=== PATIENT | male | born 1950 | race Caucasian/White ===

== ENCOUNTER 2019-05-06 11:45 | Outpatient (CLI) | payer OTHER ==
[2019-05-06] MEDS ORDERED: LEVE100S PO (12:36)
[2019-05-06] MEDS ORDERED: LANS15CA5 PO (12:36)
[2019-05-06] MEDS ORDERED: LISI-167 PO (12:36)
[2019-05-06] MEDS ORDERED: SIMV40TA3 PO (12:36)
[2019-05-06 13:11] LABS: CULTURE INDICATED? YES; MICROSCOPIC INDICATED
[2019-05-06 13:11] LABS: BASOPHILS # (AUTO) 0.05 x10^3/uL (0-0.1); BASOPHILS % (AUTO) 1 % (0-1); EOSINOPHILS # (AUTO) 0.06 x10^3/uL (0-0.4); EOSINOPHILS % (AUTO) 1 % (1-7); LYMPHOCYTES # (AUTO) 1.46 x10^3/uL (1-3.4); LYMPHOCYTES % (AUTO) 19 % (22-44); MD NO; MEAN CORPUSCULAR HEMOGLOBIN 30.6 pg (27.5-34.5); MEAN CORPUSCULAR HGB CONC 32.3 g/dL (33.2-36.2); MEAN CORPUSCULAR VOLUME 94.7 fL (81-97); MEAN PLATELET VOLUME 7.8 fL (7.4-10.4); MONOCYTES # (AUTO) 0.75 x10^3/uL (0.2-0.8); MONOCYTES % (AUTO) 10 % (2-9); NEUTROPHILS # (AUTO) 5.59 x10^3/uL (1.8-6.8); NEUTROPHILS % (AUTO) 71 % (42-75); PLATELET COUNT 245 x10^3/uL (130-400); RED BLOOD COUNT 5.45 x10^6/uL (4.38-5.82); RED CELL DISTRIBUTION WIDTH 15.2 % (9.4-14.8)
[2019-05-06 13:16] LABS: INTERNATIONAL NORMALIZED RATIO 1.03 (0.93-1.1); PROTHROMBIN TIME 10.8 Seconds (9.6-11.5)
[2019-05-06 13:17] LABS: ALBUMIN 4.1 g/dL (3.4-5.0); ANION GAP 5 mmol/L (5-15); CALCIUM 9.2 mg/dL (8.5-10.1); CHLORIDE 106 mmol/L (98-107)
[2019-05-06 13:20] LABS: ALANINE AMINOTRANSFERASE 23 U/L (12-78); ALKALINE PHOSPHATASE 67 U/L (45-117); BILIRUBIN,TOTAL 0.8 mg/dL (0.2-1.0); CREATININE 1.05 mg/dL (0.7-1.3); TOTAL PROTEIN 7.2 g/dL (6.4-8.2)
== END 2019-05-06 23:59 | disposition home or self-care (01) ==
LOC: STAR 11:45
PROVIDERS: ATTEND Neurological Surgery
DX: M48.02 Spinal stenosis, cervical region (principal); R94.31 Abnormal electrocardiogram [ECG] [EKG]
CPT/HCPCS: 36415; 71046; 80053; 81001; 85025; 85610; 85730; 87086; 93005

== ENCOUNTER 2019-05-14 09:23 | Inpatient (IN) | payer OTHER ==
[~2019-05-14] VITALS: Ht 177.8 cm; Wt 71.7 kg
[~2019-05-14 09:23] MED LIST: BACITRACIN 50,000 UNIT ONE; BUPIVACAINE/PF 0.5% ONE; EPINEPHRINE 1 MG/ML, 1ML ONE; LANS15CA5 PO; LEVE100S PO; LISI-167 PO; SIMV40TA3 PO; THROMBIN 5,000 UNIT VIAL TP ONE
[2019-05-14] MEDS ORDERED: LACTATED RINGERS 1,000 ML IV SCH (09:36)
[2019-05-14] MEDS ORDERED: MIDAZOLAM 1 MG/ML, 2ML ONE (10:01)
[2019-05-14] MEDS ORDERED: FENTANYL PF 250 MCG/5ML ONE (10:10)
[2019-05-14] MEDS ORDERED: GLYCOPYRROLATE 0.2MG/1ML, 5ML ONE (10:11)
[2019-05-14] MEDS ORDERED: CEFAZOLIN 1,000 MG ONE (10:11)
[2019-05-14] MEDS ORDERED: DEXAMETHASONE 4 MG/ML, 1ML ONE (10:11)
[2019-05-14] MEDS ORDERED: SUCCINYLCHOLINE 20 MG/ML, 10ML ONE (10:11)
[2019-05-14] MEDS ORDERED: ROCURONIUM 10MG/ML,5ML ONE (10:11)
[2019-05-14] MEDS ORDERED: NEOSTIGMINE 1 MG/ML, 10ML ONE (10:11)
[2019-05-14] MEDS ORDERED: PROPOFOL 10 MG/ML, 20ML ONE (10:11)
[2019-05-14] MEDS ORDERED: ONDANSETRON 2MG/ML, 2ML ONE (10:11)
[2019-05-14] MEDS ORDERED: hydrALAzine 20 MG/ML, 1ML ONE (11:00)
[2019-05-14] MEDS ORDERED: METOPROLOL 1 MG/ML, 5ML ONE (11:00)
[2019-05-14] MEDS ORDERED: DIAZEPAM 5 MG/ML, 2ML ONE (13:10)
[2019-05-14] MEDS ORDERED: OXYcodone 5 MG/5 ML ORAL.SOL UDC ONE (13:10)
[2019-05-14] MEDS ORDERED: FENTANYL PF 100 MCG/2ML ONE (13:10)
[2019-05-14] MEDS ORDERED: ACETAMINOPHEN 650 MG/20.3 ML UDC ONE (13:13)
[2019-05-14] MEDS: FENTANYL PF 100 MCG/2ML IV PRN ×2 (13:15→13:40)
[2019-05-14] MEDS: DIAZEPAM 5 MG/ML, 2ML IVPush PRN ×2 (13:20→13:50)
[2019-05-14] MEDS ORDERED: CYCLOBENZAPRINE 10 MG TABLET ONE (13:27)
[2019-05-14] MEDS ORDERED: ACETAMINOPHEN 325 MG TABLET PO PRN (13:30)
[2019-05-14] MEDS ORDERED: CYCLOBENZAPRINE 10 MG TABLET PO ONE (13:30)
[2019-05-14] MEDS ORDERED: hydrALAzine 20 MG/ML, 1ML IV PRN (13:30)
[2019-05-14] MEDS ORDERED: HYDROmorphone 2 MG/ML, 1ML IVPush PRN (13:30)
[2019-05-14] MEDS ORDERED: ALBUTEROL SULFATE 2.5 MG/3 ML NPPB PRN (13:30)
[2019-05-14] MEDS ORDERED: MEPERIDINE/PF 25MG/0.5ML IVPush PRN (13:30)
[2019-05-14] MEDS ORDERED: LABETALOL 5MG/ML, 20ML IV PRN (13:30)
[2019-05-14] MEDS ORDERED: OXYcodone 5 MG/5 ML ORAL.SOL UDC PO PRN (13:30)
[2019-05-14] MEDS ORDERED: PROMETHAZINE 25 MG/ML, 1ML IV PRN (13:30)
[2019-05-14] MEDS ORDERED: SUGAMMADEX 200 MG/2 ML IVPush ONE (13:36)
[2019-05-14] MEDS ORDERED: HYDROmorphone 2 MG/ML, 1ML IM PRN (14:30)
[2019-05-14] MEDS ORDERED: HYDROmorphone 2MG TABLET PO PRN (14:30)
[2019-05-14] MEDS ORDERED: ONDANSETRON 2MG/ML, 2ML IV PRN (15:00)
[2019-05-14] MEDS ORDERED: DIPHENHYDRAMINE 50 MG/ML, 1ML IVPush PRN (15:00)
[2019-05-14] MEDS ORDERED: BISACODYL 10 MG SUPP PR PRN (15:00)
[2019-05-14] MEDS ORDERED: HYDROcodone/APAP 5/325 TABLET PO PRN (15:00)
[2019-05-14] MEDS ORDERED: OXYcodone/APAP 5/325MG TABLET PO PRN (15:00)
[2019-05-14] MEDS ORDERED: DIPHENHYDRAMINE 50 MG CAPSULE PO PRN (15:00)
[2019-05-14] MEDS ORDERED: MAGNESIUM HYDROXIDE 8%, 30ML UDC PO PRN (15:00)
[2019-05-14] MEDS ORDERED: PROMETHAZINE 25 MG/ML, 1ML IM PRN (15:00)
[2019-05-14] MEDS ORDERED: DIPHENHYDRAMINE 50 MG/ML, 1ML IM PRN (15:00)
[2019-05-14] MEDS: DEXAMETHASONE 4 MG/ML, 1ML IV SCH ×2 (16:32→22:18)
[2019-05-14] MEDS: D5%-0.9% NACL+KCL 20MEQ 1,000 ML IV SCH (16:32)
[2019-05-14 19:02] VITALS: BP 173/100
[2019-05-14] MEDS: CEFAZOLIN PMX 1GM/50ML 50 ML IVPB SCH (19:56)
[2019-05-14] MEDS: LEVETIRACETAM 100 MG/ML ORAL SOL PO SCH (19:56)
[2019-05-14] MEDS ORDERED: SIMVASTATIN 40 MG TABLET PO SCH (21:00)
[2019-05-14] MEDS ORDERED: CYCLOBENZAPRINE 10 MG TABLET PO PRN (21:30)
[2019-05-14] MEDS ORDERED: LISINOPRIL 10 MG TABLET ONE (22:16)
[2019-05-14] MEDS: FAMOTIDINE 20 MG TABLET PO SCH (22:18)
[2019-05-14] MEDS: LISINOPRIL 10 MG TABLET PO SCH (22:18)
[2019-05-14 23:55] VITALS: BP 132/83
[2019-05-15] MEDS: D5%-0.9% NACL+KCL 20MEQ 1,000 ML IV SCH ×2 (03:18→13:15)
[2019-05-15] MEDS: CEFAZOLIN PMX 1GM/50ML 50 ML IVPB SCH (03:18)
[2019-05-15 03:41] VITALS: BP 160/94
[2019-05-15] MEDS: DEXAMETHASONE 4 MG/ML, 1ML IV SCH ×2 (04:53→11:07)
[2019-05-15 05:44] LABS: BASOPHILS # (AUTO) 0.03 x10^3/uL (0-0.1); BASOPHILS % (AUTO) 0 % (0-1); EOSINOPHILS % (AUTO) 0 % (1-7); LYMPHOCYTES % (AUTO) 4 % (22-44); MD NO; MEAN CORPUSCULAR HEMOGLOBIN 31.4 pg (27.5-34.5); MEAN CORPUSCULAR HGB CONC 32.6 g/dL (33.2-36.2); MEAN CORPUSCULAR VOLUME 96.2 fL (81-97); MONOCYTES # (AUTO) 0.69 x10^3/uL (0.2-0.8); MONOCYTES % (AUTO) 5 % (2-9); NEUTROPHILS # (AUTO) 12.88 x10^3/uL (1.8-6.8); NEUTROPHILS % (AUTO) 91 % (42-75); PLATELET COUNT 247 x10^3/uL (130-400); RED BLOOD COUNT 5.48 x10^6/uL (4.38-5.82); RED CELL DISTRIBUTION WIDTH 15.1 % (9.4-14.8)
[2019-05-15 05:53] LABS: ANION GAP 5 mmol/L (5-15); CALCIUM 9.2 mg/dL (8.5-10.1); CHLORIDE 107 mmol/L (98-107); CREATININE 0.94 mg/dL (0.7-1.3)
[2019-05-15] MEDS ORDERED: PANTOPROZOLE 40MG TABLET PO SCH (06:00)
[2019-05-15 06:51] VITALS: BP 164/88
[2019-05-15] MEDS ORDERED: SENNA/DOCUSATE TABLET PO SCH (09:00)
[2019-05-15] MEDS: LISINOPRIL 10 MG TABLET PO SCH (09:32)
[2019-05-15] MEDS: FAMOTIDINE 20 MG TABLET PO SCH (09:32)
[2019-05-15] MEDS: LEVETIRACETAM 100 MG/ML ORAL SOL PO SCH (09:33)
[2019-05-15] MEDS ORDERED: CYCL-259 PO (09:51)
[2019-05-15] MEDS ORDERED: HYDR-3240 PO (09:51)
[2019-05-15] MEDS ORDERED: METH4TAB2 PO (09:52)
[2019-05-15 13:01] VITALS: BP 188/96
[2019-05-15 15:31] VITALS: BP 164/81
--- NOTE | 2019-05-15 17:15 | NUR ---
REC PUREE/THIN; swallow precautions sheet posted at bedside Addendum: 05/15/19 at [address] Amended: Links added.
== END 2019-05-15 17:46 | disposition home or self-care (01) | DRG 472 ==
LOC: ORIP 09:23 → 4NOR 14:17
PROVIDERS: ADMIT Neurological Surgery; ATTEND Neurological Surgery
PROC: 0RB30ZZ Excision of Cervical Vertebral Disc, Open Approach (ICD-10-PCS; 2019-05-14)
PROC: 00NW0ZZ Release Cervical Spinal Cord, Open Approach (ICD-10-PCS; 2019-05-14)
PROC: 0RG20A0 Fusion of 2 or more Cervical Vertebral Joints with Interbody Fusion Device, Anterior Approach, Anterior Column, Open Approach (ICD-10-PCS; principal; 2019-05-14 10:00)
DX: M48.02 Spinal stenosis, cervical region (principal); G99.2 Myelopathy in diseases classified elsewhere; H40.9 Unspecified glaucoma; K21.9 Gastro-esophageal reflux disease without esophagitis; M19.90 Unspecified osteoarthritis, unspecified site; M54.12 Radiculopathy, cervical region; F32.9 Major depressive disorder, single episode, unspecified; G40.909 Epilepsy, unspecified, not intractable, without status epilepticus; I10 Essential (primary) hypertension; E78.5 Hyperlipidemia, unspecified; G83.9 Paralytic syndrome, unspecified; Z87.891 Personal history of nicotine dependence; Z82.49 Family history of ischemic heart disease and other diseases of the circulatory system; Z82.61 Family history of arthritis; Z79.899 Other long term (current) drug therapy
CPT/HCPCS: 36415; 72040; S0020; 72125; 80048; 85025; C1713; G0378; J0171; J0690; J1100; J2250; J2405; J2704; J2710; J3010; J3360; C1763; J0330; J0360; J3480; J7120